=== PATIENT | female | born 1995 | race Caucasian/White ===

== ENCOUNTER 2020-11-12 13:53 | Emergency (ER) | payer OTHER, SELFPAY ==
--- NOTE | ~2020-11-12 | XR_ITS ---
EXAMINATION: XR chest 2V DATE: 11/12/2020 17:06 INDICATION: Near syncope. TECHNIQUE: Frontal and lateral views of the chest were obtained. COMPARISON: None. FINDINGS: The chest demonstrates clear lungs without pneumonia, pleural effusion, or pneumothorax. Th e heart size is normal. Surgical clips in the right upper quadrant are likely from cholecystectomy. IMPRESSION: 1. No acute cardiopulmonary disease. Reviewed, dictated and finalized at location A.
[2020-11-12 14:47] VITALS: BP 141/87; PULSE 77; RESP 18; TEMP 36.4; O2SAT 99
--- NOTE | 2020-11-12 14:52 | ECG_ITS ---
Measurements Intervals [place] Rate: 79 P: 66 ID: [id number] QRS: 35 QRSD: 83 T: 23 QT: 364 QTc: 418 Interpretive Statements SINUS RHYTHM BORDERLINE ST-T WAVE ABNORMALITY- INFERIOR LEADS BASELINE ARTIFACT- I, II, AVR, AVL BORDERLINE ECG Electronically Signed On 11-12-2020 15:04:47 CDT by Len Ayala D.O.
[2020-11-12 15:09] LABS: Hematocrit 41.7 % (37.0-47.0); Hemoglobin 14.2 g/dL (12.0-15.0); Mean Corpuscular HGB Conc 34.1 g/dl (32-36); Mean Corpuscular Hemoglobin 32.9 pg (26-34); Mean Corpuscular Volume 96.8 fl (80-100); Platelet Count Result 239 k/mm3 (150-375); Red Blood Count 4.31 M/mm3 (4.2-5.4); Red Cell Distribution Width 11.6 % (11.5-14.5); White Blood Count 6.8 K/mm3 (4.5-10.0)
[2020-11-12 15:10] LABS: Basophils Percent Auto 0.6 % (0.2-1.2); Eosinophils Absolute Auto 0.1 K/mm3 (0-0.3); Immature Granulocyte Absolute 0.02 K/mm3 (0.00-0.031); Immature Granulocyte Percent A 0.3 % (0-0.5); Lymphocytes Absolute Auto 1.99 K/mm3 (0.9-3.2); Lymphocytes Percent Auto 29.5 % (18.3-44.2); Mean Platelet Volume 9.7 fl (7.4-10.4); Monocytes Absolute Auto 0.7 K/mm3 (0.1-0.6); Monocytes Percent Auto 10.7 % (2.6-8.5); Neutrophils Absolute Auto 3.9 K/mm3 (1.3-6.7); Neutrophils Percent Auto 57.9 % (45.5-73.1)
[2020-11-12 15:25] LABS: Alanine Aminotransferase 42 U/L (4-35); Albumin Level 4.8 g/dL (3.5-5.1); Alkaline Phosphatase 56 U/L (38-126); Anion Gap 9 mmol/L (8-16); Aspartate Amino Transferase 40 U/L (14-36); Bilirubin,Total 0.3 mg/dL (0.2-1.3); Blood Urea Nitrogen 9 mg/dL (7-17); Calcium 9.6 mg/dL (8.4-10.2); Carbon Dioxide 24 mmol/L (22-30); Chloride 106 mmol/L (98-107); Estimated CRCL calculation 118 ml/min; Estimated Glomerular Filt Rate > 60; Glucose 104 mg/dL (65-105); Potassium 3.7 mmol/L (3.4-5.0); Sodium 139 mmol/L (137-145)
--- NOTE | 2020-11-12 16:36 | ED.DIZZY ---
HPI - Dizziness General Chief Complaint: Dizziness Stated Complaint: near syncope at work Time Seen by Provider: 11/12/20 16:35 Source: patient Mode of arrival: ambulatory Limitations: no limitations History of Present Illness HPI Narrative: Patient is a 25-year-old female who presents for evaluation of near syncopal event. Patient was at work this morning, she works at a cleaning company, when she suddenly began to feel lightheaded and dizzy. Patient did not fill out although she felt slightly sweaty and had a mild episode of chest pain. Patient currently denying any chest pain, dizziness, lightheadedness or dizziness. She did not lose consciousness. Patient states she has had episodes happen to her that were similar to this in the past but has never received a diagnosis. She denies any fever, cough, shortness of breath. She does have a history of anxiety and states this does not attribute to her symptoms. She denies leg swelling or calf pain. She is not on any oral contraceptives or hormone replacement. She did recently take a 2-hour flight 2 weeks ago. No known history of Covid. No recent sick contacts. She does not smoke. Related Data Home Medications Medication Instructions Recorded Confirmed No Home Medications 11/12/20 11/12/20 Allergies Allergy/AdvReac Type Severity Reaction Status Date / Time No Known Allergies Allergy Verified 11/12/20 14:51 Review of Systems Review of Systems: Narrative: CONSTITUTIONAL: Denies fever, chills, or sweats. EYES: Denies visual changes, redness, or discharge. ENT: Denies rhinorrhea, congestion, sore throat, or otalgia. CARDIOVASCULAR: Denies current chest pain, palpitations, or edema. RESPIRATORY: Denies current cough or dyspnea. GASTROINTESTINAL: Denies abdominal pain, nausea, vomiting, or diarrhea. GENITOURINARY: Denies dysuria or hematuria. SKIN: Denies rash or itching. MUSCULOSKELETAL: Denies back pain, joint pain, or myalgia. NEUROLOGIC: Reports history of headaches chronically, denies numbness or weakness currently PSYCHIATRIC: Reports anxiety, denies depression [facility] Surgical History Surgical History (Updated 11/12/20 @ 16:59 by Jane Cody MD) Hx of cholecystectomy Social History Social History (Updated 11/12/20 @ 16:59 by Jane Cody MD) Smoking status: Current every day smoker Tobacco type: cigarettes Substance use: never Living arrangements: with family Gender identity (if verbalized by the patient): Female Exam Narrative: Exam Narrative: GENERAL: Awake, alert, conversant HEAD: Normocephalic, atraumatic. EYES: PERRLA and EOMI. ENT: Nares clear, no rhinorrhea or epistaxis. Mucous membranes moist. NECK: Supple. CHEST: No respiratory distress, breathing even and non labored, no chest wall tenderness HEART: Regular rate, sinus rhythm ABDOMEN:Non distended, non tender EXTREMITIES: Normal range of motion. No edema. SKIN: Warm, dry, no rash. NEURO:No focal deficits. Alert and oriented x3. Finger to nose intact bilaterally. EOMs intact without nystagmus. No facial droop/asymmetry noted bilaterally. Grimace intact. Intact sensation in face. Strength 5/5 bilateral upper extremities. Strength 5/5 bilateral lower extremities. Heel to villalobos intact bilaterally. Ambulatory with a narrow based, steady gait, no ataxia. Course Vital Signs Vital signs: Vital Signs Temperature 36.4 C 11/12/20 14:47 Pulse Rate 77 11/12/20 14:47 Respiratory Rate 18 11/12/20 14:47 Blood Pressure 141/87 H 11/12/20 14:47 Pulse Oximetry 99 11/12/20 14:47 Temperature 36.4 C 11/12/20 14:47 Pulse Rate 77 11/12/20 14:47 Respiratory Rate 18 11/12/20 14:47 Blood Pressure 141/87 H 11/12/20 14:47 Pulse Oximetry 99 11/12/20 14:47 MDM - Dizziness MDM Narrative Medical decision making narrative: The patient was evaluated in the emergency department for a near syncopal event. The patient's episode of syncope is not felt to be due to hig
[2020-11-12 17:09] LABS: Add Urine Microscopic? NO; Appearance Urine Clear (Clear); Bilirubin Urine Negative (Negative); Blood Urine Negative (Negative); Color Urine Yellow (Yellow); Glucose Urine UA Negative (Negative); Ketones Urine Negative (Negative); Leukocyte Esterase Ur Negative LEU/UL (Negative); Nitrate Urine Negative (Negative); Protein Urine Negative (Negative); Specific Grav Ur 1.008 (1.001-1.035); Urobilinogen Urine Negative mg/dL (<2.0)
[2020-11-12 17:47] LABS: INR 0.9; Prothrombin Time 12.4 Seconds (11.1-14.7)
[2020-11-12 17:48] LABS: Partial Thromboplastin Time 29.2 SECONDS (22.3-36.8)
[2020-11-12 17:52] LABS: D Dimer 0.27 ug/mL (<0.48)
[2020-11-12 18:10] LABS: Troponin I < 0.012 ng/mL (0.000-0.034)
== END 2020-11-12 19:00 | disposition home or self-care (01) ==
PROVIDERS: Emergency Medicine; Emergency Provider Emergency Medicine; PCP Internal Medicine
DX: R55 Syncope and collapse (principal); F17.210 Nicotine dependence, cigarettes, uncomplicated; R94.31 Abnormal electrocardiogram [ECG] [EKG]
CPT/HCPCS: 36415; 71046; 80053; 81003; 84484; 85025; 85380; 85610; 85730; 93005; 99284

== ENCOUNTER 2020-12-26 10:44 | Emergency (ER) | payer OTHER, SELFPAY ==
--- NOTE | ~2020-12-26 | XR_ITS ---
EXAMINATION: XR chest 2V DATE: 12/26/2020 11:11 INDICATION: Cough. Congestion. TECHNIQUE: Frontal and lateral views of the chest were obtained. COMPARISON: Chest 2 views 11/12/2020 FINDINGS: The chest demonstrates clear lungs without pneumonia, pleural effusion, or pneumothorax. Th e heart size is normal. IMPRESSION: 1. No acute cardiopulmonary disease. Reviewed, dictated and finalized at location B.
[2020-12-26 10:55] VITALS: BP 141/87; PULSE 94; RESP 18; TEMP 37.5; O2SAT 100
--- NOTE | 2020-12-26 11:34 | ED.GENADULT ---
HPI - General Adult General Chief complaint: Upper Respiratory Infection Stated complaint: Cough,Congestion Time Seen by Provider: 12/26/20 10:51 Source: patient and RN notes reviewed Mode of arrival: ambulatory Limitations: no limitations History of Present Illness HPI narrative: 25-year-old female presents with complains of upper respiratory infection, intermittent headache (not the worst of her life), and cough for the past 7 days. Ruth reports increasing symptoms and intermittent shortness of breath over the past 24-48 hours. Azithromycin and Methylprednisone without relief, only took for 2-3 days, Excedrin with relief for DOSS. Dry cough with chest congestion. Rhinorrhea and nasal congestion. Denies sore throat. No high fevers, drooling, neck or throat swelling. No chest pain or wheezing. Exacerbation factors consists of smoke exposure. Denies nausea, vomiting, and abdominal pain. Tolerating liquids well. LMP 12/20/2020. Remains active. The patient reports she have not been diagnosed with COVID-19. The patient reports she is not waiting for the results of a COVID-19 lab test. The patient reports she do not have chills, weakness, or fatigue. The patient reports she do not have any loss of taste or smell or diarrhea. Denies recent traveling. Denies concerns for COVID-19 or exposures been home with limited outdoor exposure except for essential household needs, work, and return home. At this time, patient is not suspected of having COVID-19. Some parts of this dictation were generated by voice recognition software and may contain typographical and/or grammatical inaccuracies. Related Data Allergies Allergy/AdvReac Type Severity Reaction Status Date / Time No Known Allergies Allergy Verified 12/26/20 10:47 Review of Systems Review of Systems: Narrative: CONSTITUTIONAL: Denies fever, chills, sweats. EYES: Denies visual changes, redness, discharge. ENT: Denies rhinorrhea, congestion, sore throat, otalgia. CARDIOVASCULAR: Denies chest pain, palpitations, edema. RESPIRATORY: Denies wheezing. Complains of dyspnea, cough, intermittent productive greenish-brown phlegm. GASTROINTESTINAL: Denies abdominal pain, nausea, vomiting, diarrhea. GENITOURINARY: Denies dysuria, hematuria, abnormal discharge. SKIN: Denies rash or itching. MUSCULOSKELETAL: Denies acute back pain, joint pain, or myalgia. NEUROLOGIC: Denies numbness or focal weakness. PSYCHIATRIC: Denies anxiety or depression. All systems reviewed & are unremarkable except as noted in HPI and below. [facility] Past Medical History Medical History (Updated 12/27/20 @ 00:01 by Lashawn Fournier) Anxiety Depression Surgical History Surgical History Hx of cholecystectomy Family History Family History (Updated 12/26/20 @ 18:10 by ZHENG Urbano) Father Hypertension Mother Alive and well Social History Social History (Updated 12/26/20 @ 18:11 by ZHENG Urbano) Years smoked: 5 Smoking status: Current every day smoker Tobacco type: cigarettes Second hand tobacco smoke exposure: No Alcohol intake: current Substance use: never Substance use type: does not use Living arrangements: with family Occupation/Education: occupation Gender identity (if verbalized by the patient): Female Comments At time of signature, agree with nurse past medical, surgical, social, and family history. There is no relevant family history pertinent to the presenting complaint. Exam Narrative: Exam Narrative: GENERAL: This is a well-nourished, well-developed patient, in no apparent distress. Talks in full sentences and ambulates with steady gait without dyspnea. HEAD: Normocephalic, atraumatic. EYES: PERRL. Sclera clear/white. Vision is grossly intact. EARS: External ears normal, auditory canals clear and without drainage, TMs normal without perforation. Hearing grossly intact. NOSE: Ex
[2020-12-26 11:50] VITALS: BP 122/84; PULSE 77
== END 2020-12-26 11:50 | disposition home or self-care (01) ==
PROVIDERS: Emergency Provider Nurse Practitioner Family
DX: J40 Bronchitis, not specified as acute or chronic (principal); F17.210 Nicotine dependence, cigarettes, uncomplicated
CPT/HCPCS: 71046; 99213; G0463

== ENCOUNTER 2021-05-12 12:30 | Emergency (ER) | payer OTHER, SELFPAY ==
[2021-05-12 12:36] VITALS: BP 133/68; PULSE 71; RESP 20; TEMP 36.7; O2SAT 100
--- NOTE | 2021-05-12 13:38 | ECG_ITS ---
Measurements Intervals [place] Rate: 60 P: 65 CA: 145 QRS: 28 QRSD: 79 T: 12 QT: 413 QTc: 414 Interpretive Statements SINUS RHYTHM WITH MARKED SINUS ARRHYTHMIA NORMAL ECG Electronically Signed On 05-12-2021 13:42:18 CDT by Len Ayala D.O.
--- NOTE | 2021-05-12 13:39 | ED.CHESTPAIN ---
HPI - Chest Pain General Chief Complaint: Chest Pain Stated Complaint: Left shoulder pain Time Seen by Provider: 05/12/21 13:06 Source: patient and RN notes reviewed Mode of arrival: ambulatory Limitations: no limitations History of Present Illness HPI narrative: Patient presents today complaining of cramps and tightness in her left upper chest radiating to the left shoulder into the upper back. Symptoms have been present since Wednesday and have been intermittent with no exacerbating or alleviating factors. When pain is present it is not worse with any arm movements, but does increase when patient exhales. States the left arm is sore when pain in the shoulder is present. Denies shortness of breath, abdominal pain, nausea or vomiting, sweats or chills, numbness or tingling in the arm or hand. Patient is currently pain-free. Denies any injury or trauma. 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 She has not tried any [id number] treatments prior to arrival. MD complaint: other (Left shoulder pain) Related Data Home Medications Medication Instructions Recorded Confirmed No Home Medications 05/12/21 05/12/21 Allergies Allergy/AdvReac Type Severity Reaction Status Date / Time No Known Allergies Allergy Verified 05/12/21 13:07 Review of Systems Review of Systems: CONSTITUTIONAL: Denies body aches, fever, chills, or sweats. EYES: Denies visual changes, redness, or discharge. ENT: Denies rhinorrhea, congestion, sore throat, or otalgia. CARDIOVASCULAR: Denies chest pain, palpitations, or edema. RESPIRATORY: Denies cough or dyspnea. GASTROINTESTINAL: Denies abdominal pain, nausea, vomiting, or diarrhea. GENITOURINARY: Denies dysuria or hematuria. SKIN: Denies rash, itching, or wounds. MUSCULOSKELETAL: Denies back pain, or myalgia. + Left shoulder and chest discomfort-currently absent NEUROLOGIC: Denies headache, numbness, tingling, or weakness. PSYCH: Denies depression or anxiety. [facility] Past Medical History Medical History Anxiety Depression Surgical History Surgical History Hx of cholecystectomy Family History Family History Father Hypertension Mother Alive and well Social History Social History Years smoked: 5 Smoking status: Current every day smoker Tobacco type: cigarettes Second hand tobacco smoke exposure: No Alcohol intake: current Substance use: never Substance use type: does not use Gender identity (if verbalized by the patient): Female Comments At time of signature, I have reviewed and agree with nursing past medical, surgical, social and family history unless otherwise noted. Please see nursing chart for further information. There is no relevant family history pertinent to the presenting complaint Exam Narrative: GENERAL: Well-appearing, well-nourished, and in no acute distress. HEAD: Normocephalic, atraumatic. EYES: EOMI. No redness or drainage. Conjunctivae normal. ENT: Mucous membranes pink and moist. NECK: Normal AROM. Supple. No lymphadenopathy. Nontender. CHEST: No respiratory distress. Clear to auscultation. Chest is nontender. HEART: Regular rate and rhythm. No murmur appreciated. Normal peripheral pulses. MUSCULOSKELETAL: No bony tenderness. No tenderness of the left paraspinal muscles. EXTREMITIES: Left arm and shoulder are nontender. Full range of motion of the left shoulder and arm. Distal sensation intact. Capillary refill normal. Radial pulse normal. SKIN: Warm, dry, no rash. Capillary refill normal. Normal skin turgor. NEURO: No focal deficits. Alert and oriented x3. Gait steady. PSYCH: Normal affect. No signs of depression or anxiety. Course Course
== END 2021-05-12 14:00 | disposition home or self-care (01) ==
PROVIDERS: Emergency Provider Nurse Practitioner
DX: M25.512 Pain in left shoulder (principal); R07.9 Chest pain, unspecified; F17.210 Nicotine dependence, cigarettes, uncomplicated
CPT/HCPCS: 93005; 99213; G0463

== ENCOUNTER 2021-06-07 13:28 | Emergency (ER) | payer OTHER, SELFPAY ==
[2021-06-07 13:36] VITALS: BP 125/91; PULSE 70; RESP 16; TEMP 36.9; O2SAT 100
--- NOTE | 2021-06-07 14:29 | ED.EXTPRO ---
HPI - Extremity Problem General Chief complaint: Extremity Problem,Nontraumatic Stated complaint: Left Shoulder Injury Source: patient and family Mode of arrival: ambulatory Limitations: no limitations History of Present Illness HPI Narrative: Ruth is a 26-year-old female patient [facility]. Patient states she is having left upper shoulder pain. Patient states the pain is worse with movement. Patient can move her shoulder but can feel the pain pulling in the back. Patient states she she has taken 2 Excedrin this morning for the pain. Patient has not used ice or heat. Related Data Allergies Allergy/AdvReac Type Severity Reaction Status Date / Time No Known Allergies Allergy Verified 06/07/21 14:31 Review of Systems Review of Systems: CONSTITUTIONAL: Denies body aches, fever, chills, or sweats. EYES: Denies visual changes, redness, or discharge. ENT: Denies rhinorrhea, congestion, sore throat, or otalgia. CARDIOVASCULAR: Denies chest pain, palpitations, or edema. RESPIRATORY: Denies cough or dyspnea. GASTROINTESTINAL: Denies abdominal pain, nausea, vomiting, or diarrhea. GENITOURINARY: Denies dysuria or hematuria. SKIN: Denies rash, itching, or wounds. MUSCULOSKELETAL: Denies back pain, + left shoulder/back pain with movement. NEUROLOGIC: Denies headache, numbness, tingling, or weakness. PSYCH: Denies depression or anxiety. All systems reviewed & are unremarkable except as noted in HPI and below PMFSH Past Medical History Medical History Anxiety Depression Surgical History Surgical History Hx of cholecystectomy Family History Family History Father Hypertension Mother Alive and well Social History Social History Years smoked: 5 Smoking status: Current every day smoker Tobacco type: cigarettes Second hand tobacco smoke exposure: No Alcohol intake: current Substance use: never Substance use type: does not use Gender identity (if verbalized by the patient): Female Comments At time of signature, I have reviewed and agree with nursing past medical, surgical, social and family history unless otherwise noted. Please see nursing chart for further information. There is no relevant family history pertinent to the presenting complaint Exam Narrative: GENERAL: Well-appearing, well-nourished, and in no acute distress. HEAD: Normocephalic, atraumatic. EYES: EOMI. No redness or drainage. Conjunctivae normal. ENT: Mucous membranes pink and moist. Nares clear. No rhinorrhea. TMs normal bilaterally. Throat normal. Uvula midline. NECK: Normal AROM. Supple. No lymphadenopathy. CHEST: No respiratory distress. Clear to auscultation. HEART: Regular rate and rhythm. No murmur appreciated. Normal peripheral pulses. ABDOMEN: Soft, nontender, nondistended, normal active bowel sounds. MUSCULOSKELETAL: No bony tenderness. EXTREMITIES: Normal range of motion. No edema; pain with palpation left upper subscapular area, no bruising or edema present. increased pain with rotation of left shoulder. SKIN: Warm, dry, no rash. Capillary refill normal. Normal skin turgor. NEURO: No focal deficits. Alert and oriented x3. Gait steady. PSYCH: Normal affect. No signs of depression or anxiety. Course Vital Signs Vital signs: Vital Signs Temperature 36.9 C 06/07/21 13:36 Pulse Rate 70 06/07/21 13:36 Respiratory Rate 16 06/07/21 13:36 Blood Pressure 125/91 H 06/07/21 13:36 Pulse Oximetry 100 06/07/21 13:36 Temperature 36.9 C 06/07/21 13:36 Pulse Rate 70 06/07/21 13:36 Respiratory Rate 16 06/07/21 13:36 Blood Pressure 125/91 H 06/07/21 13:36 Pulse Oximetry 100 06/07/21 13:36 MDM - Extremity (Nontraumatic) MDM Narrative Medical decisi
== END 2021-06-07 14:48 | disposition home or self-care (01) ==
PROVIDERS: Emergency Provider Nurse Practitioner Family
DX: S46.912A Strain of unspecified muscle, fascia and tendon at shoulder and upper arm level, left arm, initial encounter (principal); X58.XXXA Exposure to other specified factors, initial encounter
CPT/HCPCS: 99213; G0463

== ENCOUNTER 2022-01-19 15:17 | Emergency (ER) | payer OTHER, SELFPAY ==
--- NOTE | 2022-01-19 15:24 | ED.SKABFB ---
HPI - Skin/Abscess/Foreign Bdy General Chief complaint: Dental/Oral Stated complaint: lower lip swelling Time Seen by Provider: 01/19/22 15:24 Source: patient and RN notes reviewed History of Present Illness HPI narrative: Patient is a 26-year-old female who presents the urgent care with complaints of lower lip swelling. Patient is unsure if it is from the lip ring or spicy foods. Patient states it has happened in the past where she ate spicy foods and her lower lip swelled. Patient states that the piercing has been there for approximately 5 months and is not causing her any pain or drainage from the area. Patient states that she was told in the past to take Benadryl and which she has not done prior to her arrival. States that it occurred approximately 40 minutes ago. Patient states that the swelling has gone significantly down just since her arrival at the facility. Patient has not taken anything [id number] for her symptoms. Denies of any shortness of breath or difficulty swallowing. No other acute complaints. No acute distress noted. Patient aware of the plan of care. Some parts of this dictation were generated by voice recognition software and may contain typographical and/or grammatical inaccuracies. Related Data Home Medications Medication Instructions Recorded Confirmed No Home Medications 01/19/22 01/19/22 Allergies Allergy/AdvReac Type Severity Reaction Status Date / Time No Known Allergies Allergy Verified 06/07/21 14:31 Review of Systems Review of Systems: CONSTITUTIONAL: Denies fever, chills, or sweats. EYES: Denies visual changes, redness, or discharge. ENT: Denies rhinorrhea, congestion, sore throat, or otalgia. Reports of lower lip swelling CARDIOVASCULAR: Denies chest pain, palpitations, or edema. RESPIRATORY: Denies cough or dyspnea. GASTROINTESTINAL: Denies abdominal pain, nausea, vomiting, or diarrhea. GENITOURINARY: Denies dysuria or hematuria. SKIN: Denies rash or itching. MUSCULOSKELETAL: Denies back pain, joint pain, or myalgia. NEUROLOGIC: Denies headache, numbness, or weakness. All other systems reviewed are negative, except as documented in HPI. [facility] Past Medical History Medical History Anxiety Depression Surgical History Surgical History Hx of cholecystectomy Family History Family History Father Hypertension Mother Alive and well Social History Social History Years smoked: 5 Smoking status: Current every day smoker Tobacco type: cigarettes Second hand tobacco smoke exposure: No Alcohol intake: current Substance use: never Substance use type: does not use Gender identity (if verbalized by the patient): Female Comments At the time of my signature, I reviewed and agree with the nursing past medical, surgical, social, and family history. There is no relevant family history pertinent to the patient complaint. Exam Narrative: GENERAL: This is a well-nourished, well-developed patient, in no apparent distress. HEAD: normocephalic, atraumatic. EYES: PERRL. Sclera clear/white. Vision is grossly intact. EARS: External ears normal NOSE: External nose normal with no obvious nasal discharge, nares without redness, no rhinorrhea. THROAT: Mucous membranes moist, posterior pharynx clear. Patent airway. Very mild lower right-sided lip edema NECK: Neck supple, non-tender without lymphadenopathy CARDIOVASCULAR: Regular rate and rhythm without murmurs, gallops, or rubs. RESPIRATORY: Clear to auscultation. Breath sounds equal bilaterally. No wheezes, rales, or rhonchi. SKIN: warm, intact with no suspicious lesions or rash, good texture and turgor. NEURO: awake, alert, and oriented to person, place and time. There were no obvious focal neurologic ab
[2022-01-19 15:31] VITALS: BP 130/86; PULSE 79; RESP 14; TEMP 37.2; O2SAT 100
[2022-01-19] MEDS: predniSONE 20 MG TABLET 40 MG PO (16:11)
== END 2022-01-19 16:33 | disposition home or self-care (01) ==
PROVIDERS: Emergency Provider Nurse Practitioner Family
DX: R22.0 Localized swelling, mass and lump, head (principal); F17.210 Nicotine dependence, cigarettes, uncomplicated
CPT/HCPCS: 99211; 99213; G0463; J7512

== ENCOUNTER 2022-03-17 14:42 | Emergency (ER) | payer OTHER, SELFPAY ==
--- NOTE | ~2022-03-17 | CT_ITS ---
EXAMINATION: CT brain wo con DATE: 03/17/2022 15:11 INDICATION: New headache. TECHNIQUE: Computed tomography (CT) of the head was performed without intravenous contrast. The mA wa s adjusted according to patient size. Iterative reconstruction technique was employed. The dose-lengt h product was 605.33 mGy-cm. COMPARISON: None FINDINGS: There is no intracranial hemorrhage, acute infarction, or abnormal intracranial mass lesion . The ventricles are normal in size. The paranasal sinuses are clear. The orbits are normal. The mast oid air cells are normal. IMPRESSION: 1. Normal brain. Reviewed, dictated and finalized at location A. IMPRESSION: 1. Normal brain.
[2022-03-17 14:43] VITALS: PULSE 84; RESP 14; TEMP 36.8; O2SAT 98
--- NOTE | 2022-03-17 14:55 | ED.HA ---
HPI - Headache General Chief Complaint: Headache Stated Complaint: Headache Time Seen by Provider: 03/17/22 14:47 Source: patient Mode of arrival: ambulatory Limitations: no limitations History of Present Illness HPI Narrative: This is a 27-year-old female that presents to the emergency department for right-sided headache. Ongoing over the last month. Reports pressure on the right side of the head. She takes Excedrin with some relief. Denies fever, vision changes, vomiting, numbness, or weakness. Related Data Home Medications Medication Instructions Recorded Confirmed No Home Medications 01/19/22 01/19/22 Allergies Allergy/AdvReac Type Severity Reaction Status Date / Time No Known Allergies Allergy Verified 06/07/21 14:31 Review of Systems Review of Systems: CONSTITUTIONAL: Denies fever EYES: Denies visual changes NEUROLOGIC: Reports headache. Denies numbness, or weakness. All systems reviewed & are unremarkable except as noted in HPI and below PMFSH Past Medical History Medical History Anxiety Depression Surgical History Surgical History Hx of cholecystectomy Family History Family History Father Hypertension Mother Alive and well Social History Social History Years smoked: 5 Smoking status: Current every day smoker Tobacco type: cigarettes Second hand tobacco smoke exposure: No Alcohol intake: current Substance use: never Substance use type: does not use Gender identity (if verbalized by the patient): Female Exam Narrative: GENERAL: Well-appearing, well-nourished, and in no acute distress. HEAD: Normocephalic, atraumatic. EYES: PERRLA and EOMI. ENT: Nares clear, no rhinorrhea or epistaxis. Mucous membranes moist. Oropharynx without tonsillar hypertrophy exudate or other lesions. Bilateral TMs pearly rush non-bulging NECK: Supple. No adenopathy or masses. CHEST: Clear to auscultation. No respiratory distress. No wheezes rales or rhonchi HEART: Regular rate and rhythm. No murmur heard. Normal peripheral pulses. EXTREMITIES: Normal range of motion. No edema. Strength equal in bilateral upper and lower extremities (5/5) SKIN: Warm, dry, no rash. NEURO: No focal deficits. Alert and oriented x3. Cranial nerves II through XII grossly intact PSYCH: Normal mood and affect Course Vital Signs Vital signs: Vital Signs Temperature 98.2 F 03/17/22 14:43 Pulse Rate 84 03/17/22 14:43 Respiratory Rate 14 03/17/22 14:43 Pulse Oximetry 98 03/17/22 14:43 Oxygen Delivery Room Air 03/17/22 14:43 Temperature 98.2 F 03/17/22 14:43 Pulse Rate 84 03/17/22 14:43 Respiratory Rate 14 03/17/22 14:43 Blood Pressure 133/88 03/17/22 14:57 Pulse Oximetry 98 03/17/22 14:43 Oxygen Delivery Room Air 03/17/22 14:43 MDM - Headache MDM Narrative Medical decision making narrative: Patient presents to the emergency department for a headache ongoing over the last month. She is afebrile and nontoxic-appearing. Her vitals are stable. She is neurologically intact. CT scan of the brain is normal. Reports improvement with migraine cocktail. She is to follow-up with her primary care doctor. She was given warnings to return to the ER Patient reports she has been having some increased anxiety recently. She has no thoughts of harming herself or anyone else. Initially wanted to be evaluated by crisis for resources, she no longer wishes to do this and would like to be discharged. Reports she will follow-up with her primary doctor for this as well Imaging Data Radiologist's impression: ITS Impressions Head CT 03/17/22 15:12 IMPRESSION: 1. Normal brain. Critical Care Time Critical Care Time Critical Care Time: No Dis
[2022-03-17 14:57] VITALS: BP 133/88
[2022-03-17] MEDS: METOCLOPRAMIDE HCL INJ 10 MG/2 ML VIAL IV PUSH (15:23)
[2022-03-17] MEDS: SODIUM CHLORIDE 0.9% IV 1,000 ML 999 ML IV CONT (15:23)
[2022-03-17] MEDS: diphenhydrAMINE HCl INJ 50 MG/ML VIAL 25 MG IV PUSH (15:23)
--- NOTE | 2022-03-17 16:03 | PC.NURSE ---
As I was giving patient her medications, she expressed that she was having a lot of anxiety. She started crying and expressing how she had a lot going on in her head and she could not turn it off. I spoke to Morena BACA about pt and she suggested we ask if patient was interested in talking to crisis. I explained to patient what crisis would do, and she agreed to speak to them. Crisis was contacted.
--- NOTE | 2022-03-17 16:22 | PC.NURSE ---
Pt no longer wants to speak to crisis at this time. This rn contacted crisis and let them know.
== END 2022-03-17 17:05 | disposition home or self-care (01) ==
PROVIDERS: Emergency Provider Family Medicine
DX: R51.9 Headache, unspecified (principal); F41.9 Anxiety disorder, unspecified; F17.210 Nicotine dependence, cigarettes, uncomplicated
CPT/HCPCS: 70450; 96365; 96366; 96375; 99284; J0131; J1200; J2765; J7030

== ENCOUNTER 2022-04-24 13:33 | Emergency (ER) | payer OTHER, SELFPAY ==
[2022-04-24 13:38] VITALS: BP 116/71; PULSE 77; RESP 16; TEMP 37.7; O2SAT 99
--- NOTE | 2022-04-24 13:58 | ED.GENADULT ---
HPI - General Adult General Chief complaint: Chest Pain Stated complaint: cp Time Seen by Provider: 04/24/22 14:00 Source: patient Mode of arrival: ambulatory Limitations: no limitations History of Present Illness HPI narrative: 27-year-old female presented for complaint of left chest pain intermittently over the last 2 weeks. Pain described as sharp and brief. Denies associated cough, palpitations, sob, wheezing, n/v/d/f/c. Denies radiating pain to neck, jaw, back or arm. Endorses carrying her cleaning bags on the left shoulder, and has done some home workouts and thinks she can correlate pain after workouts. Certain positions illicit the pain. Has not taken anything for pain. Former smoker, now vapes. History of anxiety, when she feels the pain the anxiety worsens. Hx GERD for which she takes Pepcid, states this feels different. Related Data Home Medications Medication Instructions Recorded Confirmed buspirone 5 mg tablet 5 mg PO PRN PRN Anxiety 04/24/22 04/24/22 Allergies Allergy/AdvReac Type Severity Reaction Status Date / Time No Known Allergies Allergy Verified 06/07/21 14:31 Review of Systems Review of Systems: CONSTITUTIONAL: Denies body aches, fever, chills, or sweats. EYES: Denies visual changes, redness, or discharge. ENT: Denies rhinorrhea, congestion, sore throat, or otalgia. CARDIOVASCULAR: Denies palpitations, or edema. RESPIRATORY: Denies cough or dyspnea. GASTROINTESTINAL: Denies abdominal pain, nausea, vomiting, or diarrhea. GENITOURINARY: Denies dysuria or hematuria. SKIN: Denies rash, itching, or wounds. MUSCULOSKELETAL: Denies back pain, joint pain, or myalgia. NEUROLOGIC: Denies headache, numbness, tingling, or weakness. All systems reviewed & are unremarkable except as noted in HPI and below PMFSH Past Medical History Medical History Anxiety Depression Surgical History Surgical History Hx of cholecystectomy Family History Family History Father Hypertension Mother Alive and well Social History Social History Years smoked: 5 Smoking status: Current every day smoker Tobacco type: cigarettes Second hand tobacco smoke exposure: No Alcohol intake: current Substance use: never Substance use type: does not use Gender identity (if verbalized by the patient): Female Comments At time of signature, I have reviewed and agree with nursing past medical, surgical, social and family history unless otherwise noted. Please see nursing chart for further information. There is no relevant family history pertinent to the presenting complaint Exam Narrative: GENERAL: Well-appearing EYES: EOMI. No redness or drainage. Conjunctivae normal. ENT: Mucous membranes pink and moist. No rhinorrhea. CHEST: No respiratory distress. Clear to auscultation. HEART: Regular rate and rhythm. No murmur appreciated. Normal peripheral pulses. ABDOMEN: Soft, nontender, nondistended, normal active bowel sounds. SKIN: Warm, dry, no rash. Capillary refill normal. Normal skin turgor. NEURO: Alert and oriented x3. Gait steady. PSYCH: Normal affect. Course Course Emergency Course: Patient is aware of diagnosis, understands and agrees to treatment plan. Anticipatory guidance given. Patient agrees to follow-up as directed and is aware of reasons to seek care at the emergency department. Portions of this record may have been created with voice recognition software Level of Care: Express Care Visit Vital Signs Vital signs: Vital Signs Temperature 100 F H 04/24/22 13:38 Pulse Rate 77 04/24/22 13:38 Respiratory Rate 16 04/24/22 13:38 Blood Pressure 116/71 04/24/22 13:38 Pulse Oximetry 99 04/24/22 13:38 Oxygen Delivery Room Air 04/24/22 13:38
--- NOTE | 2022-04-24 14:08 | ECG_ITS ---
Measurements Intervals [place] Rate: 71 P: 65 VT: 147 QRS: 40 QRSD: 78 T: 29 QT: 383 QTc: 417 Interpretive Statements SINUS RHYTHM WITH SINUS ARRHYTHMIA NORMAL ECG COMPARED TO ECG 05/12/2021 13:30:27 NO SIGNIFICANT CHANGES Electronically Signed On 04-27-2022 7:03:57 CDT by Len Ayala D.O.
== END 2022-04-24 14:29 | disposition home or self-care (01) ==
PROVIDERS: Emergency Provider Nurse Practitioner Family
DX: R07.89 Other chest pain (principal); F17.210 Nicotine dependence, cigarettes, uncomplicated; F41.9 Anxiety disorder, unspecified; F32.A Depression, unspecified; K21.9 Gastro-esophageal reflux disease without esophagitis
CPT/HCPCS: 93005; 99213; G0463

== ENCOUNTER 2022-06-23 15:36 | Emergency (ER) | payer OTHER, SELFPAY ==
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
[2022-06-23 15:38] VITALS: BP 136/72; PULSE 103; RESP 18; TEMP 37.4; O2SAT 100
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
[2022-06-23 20:22] LABS: Basophils Absolute Auto 0.1 K/mm3 (0.0-0.1); Basophils Percent Auto 0.6 % (0.2-1.2); Eosinophils Absolute Auto 0.1 K/mm3 (0-0.3); Eosinophils Percent Auto 0.7 % (0-4.4); Hematocrit 40.4 % (37.0-47.0); Hemoglobin 13.6 g/dL (12.0-15.0); Immature Granulocyte Absolute 0.03 K/mm3 (0.00-0.031); Immature Granulocyte Percent A 0.4 % (0-0.5); Lymphocytes Absolute Auto 1.94 K/mm3 (0.9-3.2); Lymphocytes Percent Auto 23.8 % (18.3-44.2); Mean Corpuscular HGB Conc 33.7 g/dl (32-36); Mean Corpuscular Hemoglobin 32.9 pg (26-34); Mean Corpuscular Volume 97.6 fl (80-100); Mean Platelet Volume 9.6 fl (7.4-10.4); Monocytes Absolute Auto 0.7 K/mm3 (0.1-0.6); Monocytes Percent Auto 8.2 % (2.6-8.5); Neutrophils Absolute Auto 5.4 K/mm3 (1.3-6.7); Neutrophils Percent Auto 66.3 % (45.5-73.1); Platelet Count Result 262 k/mm3 (150-375); Red Blood Count 4.14 M/mm3 (4.2-5.4); Red Cell Distribution Width 11.7 % (11.5-14.5); White Blood Count 8.2 K/mm3 (4.5-10.0)
[2022-06-23 20:33] LABS: Alanine Aminotransferase 39 U/L (6-35); Albumin Level 4.9 g/dL (3.5-5.1); Alkaline Phosphatase 61 U/L (38-126); Anion Gap 12 mmol/L (8-16); Aspartate Amino Transferase 38 U/L (14-36); Bilirubin,Total 0.5 mg/dL (0.2-1.3); Blood Urea Nitrogen 10 mg/dL (7-17); Calcium 8.8 mg/dL (8.4-10.2); Carbon Dioxide 22 mmol/L (22-30); Chloride 104 mmol/L (98-107); Estimated CRCL calculation 102 ml/min; Estimated Glomerular Filt Rate > 60; Glucose 86 mg/dL (65-110); Potassium 3.6 mmol/L (3.4-5.0); Sodium 138 mmol/L (137-145)
[2022-06-23 20:35] LABS: Prothrombin Time 12.9 Seconds (11.1-14.7)
[2022-06-23 20:36] LABS: Partial Thromboplastin Time 30.9 SECONDS (22.3-36.8)
[2022-06-23 21:54] VITALS: PULSE 78; RESP 16; O2SAT 99
== END 2022-06-23 21:55 | disposition home or self-care (01) ==
PROVIDERS: Physician Assistant; Emergency Provider Emergency Medicine
DX: R51.9 Headache, unspecified (principal); R07.89 Other chest pain; R10.9 Unspecified abdominal pain; V49.40XA Driver injured in collision with unspecified motor vehicles in traffic accident, initial encounter
CPT/HCPCS: 36415; 70450; 71260; 74177; 80053; 81025; 85025; 85610; 85730; 96374; 99284; J0131; Q9967

== ENCOUNTER 2023-04-17 12:40 | Emergency (ER) | payer OTHER, SELFPAY ==
--- NOTE | ~2023-04-17 | XR_ITS ---
EXAMINATION: XR abdomen/kub 1V INDICATION: Flank pain TECHNIQUE: Supine views of the abdomen were obtained on 2 radiographs. COMPARISON: CT, 06/23/2022 FINDINGS: The bowel gas pattern is unremarkable. No urolithiasis is identified. There are no dilated loops of bowel. Cholecystectomy clips are noted. The lumbar spine is unremarkable on these AP views. The visualized lung bases are clear. IMPRESSION: 1. . No radiographic correlate for the patient's symptoms. Reviewed, dictated and finalized at location A.
[2023-04-17 12:50] VITALS: BP 138/91; PULSE 88; RESP 20; TEMP 36.8; O2SAT 100
--- NOTE | 2023-04-17 13:42 | ED.GENADULT ---
HPI - General Adult General Chief complaint: Urogenital-Female Stated complaint: lower back pain Source: patient Mode of arrival: ambulatory Limitations: no limitations History of Present Illness HPI narrative: Patient presents for evaluation of left flank pain. Symptoms of present on and off for close to a year. Typically her symptoms are positional in nature. She describes her pain as sharp. Over the past two days she has experienced more frequent pain, sometimes only lasting seconds. She rates her pain 8/10 severity. No radicular component. No fever, chills, nausea, vomiting, abdominal pain, urinary symptoms. She was seen at another urgent care about two weeks ago and was treated for a suspected UTI with 5 days of antibiotics. She was actually contacted by the urgent care and advised when her urine culture resulted that she did not have a UTI. She states the severity of her pain increased earlier today so came in for further evaluation. She actually denies pain at the present time. Related Data Home Medications Medication Instructions Recorded Confirmed No Home Medications 04/17/23 04/17/23 Allergies Allergy/AdvReac Type Severity Reaction Status Date / Time No Known Allergies Allergy Verified 04/17/23 13:05 Review of Systems Review of Systems: CONSTITUTIONAL: Denies fever, chills, or sweats. EYES: Denies visual changes, redness, or discharge. ENT: Denies rhinorrhea, congestion, sore throat, or otalgia. CARDIOVASCULAR: Denies chest pain, palpitations, or edema. RESPIRATORY: Denies cough or dyspnea. GASTROINTESTINAL: Denies abdominal pain, nausea, vomiting, or diarrhea. GENITOURINARY: Denies dysuria or hematuria. SKIN: Denies rash or itching. MUSCULOSKELETAL: Reports intermittent left flank pain. Denies joint pain, or myalgia. NEUROLOGIC: Denies headache, numbness, dizziness, or weakness. PSYCHIATRIC: Denies anxiety or depression. [facility] Past Medical History Medical History Anxiety Depression No active medical problems Surgical History Surgical History Hx of cholecystectomy Family History Family History Father Hypertension Mother Alive and well Social History Social History Years smoked: 5 Smoking status: Current every day smoker Tobacco type: cigarettes Second hand tobacco smoke exposure: No Alcohol intake: current Substance use: never Substance use type: does not use Living arrangements: with family Occupation/Education: occupation Gender identity (if verbalized by the patient): Female Exam Narrative: GENERAL: Well-appearing, well-nourished, and in no acute distress. HEAD: Normocephalic, atraumatic. EYES: PERRLA and EOMI. ENT: Nares clear, no rhinorrhea or epistaxis. Mucous membranes moist. Oropharynx without tonsillar hypertrophy exudate or other lesions. Bilateral TMs pearly rush nonbulging NECK: Supple. No adenopathy or masses. No carotid bruits or JVD CHEST: Clear to auscultation. No respiratory distress. No wheezes rales or rhonchi HEART: Regular rate and rhythm. No murmur heard. Normal peripheral pulses. ABDOMEN: Soft, nontender, nondistended, normal active bowel sounds. BACK: No tenderness in midline or paraspinous muscles of lumbar spine. No CVA tenderness EXTREMITIES: Normal range of motion. No edema. SKIN: Warm, dry, no rash. NEURO: No focal deficits. Alert and oriented x3. PSYCH: Normal mood and affect. Course Course Emergency Course: This is a 28-year-old female who presented for evaluation of left flank pain. Initial differential was for kidney stone/renal colic versus musculoskeletal pain. Although her reported pain seems consistent with renal lithiasis, would seem unlikely that she would h
== END 2023-04-17 14:02 | disposition home or self-care (01) ==
PROVIDERS: Emergency Provider Nurse Practitioner; PCP Physician Assistant
DX: R10.9 Unspecified abdominal pain (principal); F17.210 Nicotine dependence, cigarettes, uncomplicated
CPT/HCPCS: 74018; 81003; 99213; G0463